=== PATIENT | male | born 1935 | race Caucasian/White ===

== ENCOUNTER 2018-11-02 09:47 | Outpatient (CLI) | payer OTHER, MEDICARE ==
[~2018-11-02 09:47] MED LIST: ALB0.5UD IH; ALBU6.7H INH; AMLO2.5T2 PO; ATOR40TA PO; BENZ-16 PO; DORZ10DR17 EACHEYE; GLUC-133 PO; HYDR-4353 PO; METO50TA17 PO; MULT-38 PO; PANT-47 PO; SILD50TA PO; TAMS0.4C32 PO; TIOT18CA3 INH; XAL0.005OS EACHEYE
== END 2018-11-02 23:59 | disposition home or self-care (01) ==
LOC: RAD 09:47
PROVIDERS: ATTEND Orthopaedic Surgery
DX: Z01.818 Encounter for other preprocedural examination (principal); J44.9 Chronic obstructive pulmonary disease, unspecified; I10 Essential (primary) hypertension; Z96.652 Presence of left artificial knee joint; Z87.891 Personal history of nicotine dependence
CPT/HCPCS: 71046